=== PATIENT | female | born 1995 | race Caucasian/White ===

== ENCOUNTER 2020-06-19 21:52 | Emergency (ER) | payer MEDICAID ==
[~2020-06-19] VITALS: Ht 170.2 cm; Wt 97.5 kg
[2020-06-19 21:57] VITALS: Ht 170.2 cm; Wt 97.5 kg
[2020-06-19 23:56] VITALS: BP 120/59
== END 2020-06-19 23:56 | disposition home or self-care (01) ==
LOC: ED 21:52
DX: O26.892 Other specified pregnancy related conditions, second trimester (principal); T78.49XA Other allergy, initial encounter; L50.9 Urticaria, unspecified; Z3A.24 24 weeks gestation of pregnancy; X58.XXXA Exposure to other specified factors, initial encounter
CPT/HCPCS: J1200; J2405; J2930